=== PATIENT | male | born 1995 | race Caucasian/White ===

== ENCOUNTER 2017-12-22 03:21 | Emergency (ER) | payer MEDICAID ==
[~2017-12-22] VITALS: Ht 172.7 cm; Wt 62.0 kg
[2017-12-22] MEDS ORDERED: SODIUM CHLORIDE 0.9% 1,000 ML IV ONE (03:29)
[2017-12-22] MEDS ORDERED: LORAZEPAM 2MG/ML CPJ IV ONE (03:30)
[2017-12-22 04:04] LABS: EOSINOPHILS % 3.7 % (0.0-5.0); HEMATOCRIT. 46.6 % (42.0-52.0); HEMOGLOBIN. 15.8 g/dL (14.0-18.0); LYMPHOCYTES % 39.6 % (20.0-50.0); MEAN CORPUSCULAR HEMOGLOBIN 29.6 pg (28.0-32.0); MEAN CORPUSCULAR VOLUME 87.4 fL (80.0-94.0); MEAN PLATELET VOLUME 7.5 fl (7.4-10.4); MONOCYTES % 6.7 % (2.0-8.0); PLATELET 382 x1000/uL (130-400); RED BLOOD CELL COUNT 5.34 mill/uL (4.7-6.1); RED CELL DISTRIBUTION WIDTH 12.9 % (11.6-14.6)
[2017-12-22 04:12] LABS: INR 1.1; PROTHROMBIN TIME 11.3 sec (9.4-11.6)
[2017-12-22 04:18] LABS: CHLORIDE 103 mEq/L (98-107); ETHANOL BLOOD < 10 mg/dL
[2017-12-22 04:22] LABS: CREATINE KINASE 172 IU/L (39-308)
[2017-12-22 04:26] LABS: CARBAMAZEPINE < 0.5 ug/mL (4-12); PHENOBARBITAL < 2.1 ug/mL (15.0-40.0); VALPROIC ACID < 3.0 ug/mL (50-100)
[2017-12-22 04:29] LABS: AMMONIA 60 uMol/L (<32)
[2017-12-22] MEDS ORDERED: SODIUM CHLORIDE 0.9% 1000ML BAG (SEPSIS BOLUS) IV ONE (04:30)
[2017-12-22] MEDS ORDERED: LACTULOSE 20G/30ML UDC PO NR (04:45)
[2017-12-22] MEDS ORDERED: POTASSIUM BICARB/CIT ACID 25 MEQ TABLET.EFF PO NR (04:45)
[2017-12-22 07:08] LABS: *AMPHETAMINES SCREEN URINE PRESUMTIVE POSITIVE (NEGATIVE); *BARBITURATES SCREEN URINE NEGATIVE (NEGATIVE); CANNABINOID URINE SCREEN PRESUMTIVE POSITIVE (NEGATIVE); METHADONE URINE SCREEN NEGATIVE (NEGATIVE); OPIATES URINE SCREEN NEGATIVE (NEGATIVE)
[2017-12-22 07:11] LABS: *COCAINE SCREEN URINE PRESUMTIVE POSITIVE (NEGATIVE)
[2017-12-22 07:41] LABS: *BENZODIAZEPINES SCREEN URINE NEGATIVE (NEGATIVE); PHENCYCLIDINE URINE SCREEN NEGATIVE (NEGATIVE)
[2017-12-22 07:55] VITALS: BP 110/67
== END 2017-12-22 08:00 | disposition home or self-care (01) ==
LOC: ER 03:21 → EDBD 03:21 → ER 08:00
DX: R56.9 Unspecified convulsions (principal); E87.6 Hypokalemia; E87.2 Acidosis; E72.20 Disorder of urea cycle metabolism, unspecified; F19.10 Other psychoactive substance abuse, uncomplicated
CPT/HCPCS: 36415; 70450; 71045; 80053; 80156; 80165; 80184; 80185; 80305; 80307; 80329; 82140; 82550; 83605; 84443; 84484; 85025; 85610; 93005; 96361; 96374; 99291; G0482; J2060; J7030

== ENCOUNTER 2017-12-22 14:13 | Emergency (ER) | payer SELFPAY ==
[~2017-12-22] VITALS: Ht 180.3 cm; Wt 75.0 kg
[2017-12-22 14:22] VITALS: BP 113/58
== END 2017-12-22 17:50 | disposition left against medical advice (07) ==
LOC: ER 16:42
DX: G40.909 Epilepsy, unspecified, not intractable, without status epilepticus (principal); R05 Cough; F12.10 Cannabis abuse, uncomplicated
CPT/HCPCS: 99281